=== PATIENT | male | born 1965 | race Caucasian/White ===

== ENCOUNTER 2018-12-10 09:53 | Day surgery (SDC) | payer BC, OTHER ==
[2018-12-07 11:12] VITALS: BMI 30.9
[~2018-12-10 09:53] MED LIST: Pre Op ABX Message 1 EACH MISC MISCELLANE ONE
[2018-12-10 10:30] LABS: Glucose,Whole Blood 213 mg/dL (75-99)
[2018-12-10] MEDS ORDERED: LACTATED RINGERS 1,000 ML IV ONE (10:30)
[2018-12-10 10:33] VITALS: TEMP 97.9
[2018-12-10] MEDS ORDERED: ONDANSETRON 4 MG/2 ML VIAL IVP ONE (10:33)
[2018-12-10] MEDS ORDERED: DEXAMETHASONE SOD PHOSPHATE 10 MG/ML 1 ML VIAL IV ONE (10:34)
[2018-12-10] MEDS ORDERED: MIDAZOLAM 2 MG/2 ML VIAL ONE (11:32)
[2018-12-10] MEDS ORDERED: PROPOFOL 10 MG/ML 20 ML VIAL IV ONE (11:32)
[2018-12-10] MEDS ORDERED: fentaNYL (PF) 50 MCG/ML 2 ML AMP ONE (11:32)
[2018-12-10] MEDS ORDERED: LIDOCAINE 1% INJ 10MG/ML (20 ML MDV) ONE (11:32)
[2018-12-10] MEDS ORDERED: LIDOCAINE 2% INJ 20 MG/ML SQ ONE (11:42)
[2018-12-10 12:22] VITALS: RESP 18
[2018-12-10 13:28] VITALS: BP 104/69; PULSE 73
[2018-12-10 14:00] LABS: Glucose,Whole Blood 152 mg/dL (75-99)
--- NOTE | 2018-12-11 12:58 | P.OP ---
Date of Procedure: 12/10/18 Preoperative Diagnosis: Right ring trigger finger Postoperative Diagnosis: Right ring trigger finger Procedure(s) Performed: Release of right ring trigger finger Anesthesia: MAC, local Surgeon: Siva Sims Estimated Blood Loss (ml): 1 Pathology: none sent Condition: stable Disposition: PACU Indications for Procedure: The patient is a 53-year-old male who was diagnosed with a right ring trigger finger. Treatment options were discussed, as well as their respective risks and benefits; the patient expressed understanding and wished to proceed with surgery. Consent forms were signed. The surgical site was confirmed and marked preoperatively. Description of Procedure: The patient was positioned supine with the operative limb on an arm board. Monitored anesthesia was administered. Using aseptic technique, local anesthetic was injected into the subcutaneous tissues tissues around the planned incision. The right upper extremity was prepped and draped in standard, sterile fashion. A timeout was performed which confirmed the patient, this operative side, the site and the procedure to be performed. All team members expressed agreement. The hand was exsanguinated with an Esmarch, which was then clamped at the wrist and used as a tourniquet. A longitudinal incision was marked over the A1 jenaro of the ring finger. Loupe magnification was utilized throughout the case for optimum visualization. The skin was sharply incised. Blunt, spreading dissection proceeded down flexor sheath, taking care to protect the adjacent neurovascular bundles. The A1 jenaro was identified. The jenaro was found to be quite stenosed with thickened synovial adhesions along the flexor sheath. The jenaro was incised longitudinally. Due to the amount of constriction, the proximal aspect of the A2 jenaro was also released. There was mild to moderate, superficial fraying of the tendons beneath the jenaro. The flexor tendons were elevated out of the wound with Ragnell retractors. Palpable release of proximal adhesions in the palm was noted. The tendons were released and allowed to retract back to their anatomic position. Passive motion of the digit demonstrated smooth tendon gliding without appreciable catching, triggering or focal restriction. The Esmarch tourniquet was released. Good hemostasis was confirmed. The wound was irrigated with normal saline and the incision was closed with interrupted 4- 0 nylon sutures. A soft, sterile dressing was applied. All sponge, needle and instrument counts were correct at the end the case. The patient tolerated the procedure well and was transferred to recovery in stable condition.
== END 2018-12-10 13:40 | disposition home or self-care (01) ==
LOC: OR 09:53
PROVIDERS: ATTEND Orthopaedic Surgery
DX: M65.341 Trigger finger, right ring finger (principal); I11.9 Hypertensive heart disease without heart failure; E78.5 Hyperlipidemia, unspecified; E03.9 Hypothyroidism, unspecified; E11.9 Type 2 diabetes mellitus without complications; Z95.1 Presence of aortocoronary bypass graft; Z98.61 Coronary angioplasty status; I25.10 Atherosclerotic heart disease of native coronary artery without angina pectoris; N40.0 Benign prostatic hyperplasia without lower urinary tract symptoms; F39 Unspecified mood [affective] disorder; Z79.82 Long term (current) use of aspirin; Z79.1 Long term (current) use of non-steroidal anti-inflammatories (NSAID); Z79.890 Hormone replacement therapy; Z79.4 Long term (current) use of insulin; Z79.899 Other long term (current) drug therapy
CPT/HCPCS: 26055; J2001 ×2; J2250; J1100; J2405; J3010; J2704

== ENCOUNTER → 2020-06-06 | Outpatient (CLI) | payer OTHER ==
--- NOTE | 2020-06-06 14:34 | MR ---
EXAMINATION TYPE: MR knee RT wo con DATE OF EXAM: 06/06/2020 COMPARISON: None HISTORY: Right knee pain TECHNIQUE: Multiplanar, multisequence images of the knee is performed without IV contrast. FINDINGS: MEDIAL MENISCUS: Anterior and posterior horns are intact without tear. LATERAL MENISCUS: I cannot exclude small annular tear posterior horn lateral meniscus. Anterior horn of the lateral meniscus is intact. CRUCIATE LIGAMENTS: The anterior and posterior cruciate ligaments are intact and unremarkable. COLLATERAL LIGAMENTS: The medial collateral ligament and lateral collateral ligament complex are inta ct and unremarkable. EXTENSOR MECHANISM: Visualized quadriceps and patellar tendons are intact. EFFUSION: No significant suprapatellar joint effusion. POPLITEAL CYST: No popliteal/soto cyst. TRICOMPARTMENT SPACES: Intact CARTILAGE: Intact BONE MARROW SIGNAL: There is evidence of bone contusion involving the lateral tibial plateau without evidence for fracture. OTHER: No additional significant abnormality is appreciated. IMPRESSION: 1. I cannot exclude small annular tear posterior horn lateral meniscus. Bone contusion lateral tibial plateau.
== END | disposition home or self-care (01) ==
LOC: RADMRIMAIN 12:50
PROVIDERS: ATTEND Orthopaedic Surgery
DX: S80.01XA Contusion of right knee, initial encounter (principal)

== ENCOUNTER → 2020-06-19 | Outpatient (CLI) | payer OTHER ==
[2020-06-19 10:52] LABS: Potassium 4.9 mmol/L (3.5-5.1)
[2020-06-19 10:58] LABS: Basophils % (A) 0 %; Eosinophils % (A) 0 %; HCT 47.9 % (39.0-53.0); HGB 15.8 gm/dL (13.0-17.5); Lymphocytes # (A) 1.3 k/uL (1.0-4.8); Lymphocytes % (A) 15 %; MCH 29.7 pg (25.0-35.0); MCHC 32.9 g/dL (31.0-37.0); MCV 90.2 fL (80.0-100.0); Mean Platelet Volume 7.8; Monocytes # (A) 0.4 k/uL (0-1.0); Monocytes % (A) 5 %; Neutrophils # (A) 6.8 k/uL (1.3-7.7); Neutrophils % (A) 79 %; Platelet Count 164 k/uL (150-450); RBC 5.31 m/uL (4.30-5.90); RDW 13.4 % (11.5-15.5); WBC 8.6 k/uL (3.8-10.6)
== END | disposition home or self-care (01) ==
LOC: LABPAT 09:34
PROVIDERS: ATTEND Orthopaedic Surgery
DX: Z01.818 Encounter for other preprocedural examination (principal); M23.91 Unspecified internal derangement of right knee
CPT/HCPCS: 36415; 80051; 85025; 93005

== ENCOUNTER 2020-06-28 11:03 | Day surgery (SDC) | payer OTHER ==
[2020-06-27 08:43] VITALS: BMI 29.2
--- NOTE | 2020-06-27 18:58 | HP ---
HISTORY AND PHYSICAL DATE OF SURGERY: 06/28/2020 Elgin Gonzales is a 54-year-old patient seen with progressive right knee pain. We discussed options for treatment. He elected to proceed with arthroscopy. Consent was obtained. PAST MEDICAL HISTORY: Mji-udxryro-loakhnhie diabetes, hypertension, hypothyroidism. PAST SURGICAL HISTORY: Coronary artery bypass surgery. DAILY MEDICATIONS: Aspirin. ALLERGIES: NONE. SOCIAL HISTORY: He denies tobacco use. PHYSICAL EVALUATION OF THE RIGHT KNEE: His range of motion is -2/3 to 130, mild effusion. Tenderness along the medial and lateral joint lines. Positive medial Sheri's. Positive lateral Sheri's. Ligaments are stable. Hip rotation is without pain. Distal neurovascular exam is intact. RADIOGRAPHS: Right knee radiographs revealed moderate medial patellofemoral compartment osteoarthritis, Right knee MRI revealed lateral meniscal tear. IMPRESSION: 1. Internal derangement right knee with lateral meniscal tear. 2. Right knee osteoarthritis. 3. Hypertension. PLAN: Right knee arthroscopy with partial meniscectomy, partial synovectomy and debridement. MMODL / IJN: [id number] /
[~2020-06-28 11:03] MED LIST changes: +LACTATED RINGERS 1,000 ML IV SCH; +LIDOCAINE 1% (10MG/ML) FOR IV START INTRADERMA PRN; +ONDANSETRON 4 MG/2 ML VIAL IVP ONE; +ONDANSETRON 4 MG/2 ML VIAL IVP PRN; -Pre Op ABX Message 1 EACH MISC MISCELLANE ONE; +SCOPOLAMINE 1.5MG/72HR PATCH TRANSDERM ONE
[2020-06-28 11:39] VITALS: RESP 16
[2020-06-28 11:53] LABS: Glucose,Whole Blood 194 mg/dL (75-99)
[2020-06-28] MEDS ORDERED: MIDAZOLAM 2 MG/2 ML VIAL ONE (12:58)
[2020-06-28] MEDS ORDERED: SUCCINYLCHOLINE CHLORIDE 100 MG/5 ML SYR IV ONE (12:58)
[2020-06-28] MEDS ORDERED: KETOROLAC 15 MG/ML 1 ML VIAL ONE (12:58)
[2020-06-28] MEDS ORDERED: PROPOFOL 10 MG/ML 20 ML VIAL IV ONE (12:58)
[2020-06-28] MEDS ORDERED: GLYCOPYRROLATE 0.2 MG/ML 2 ML VIAL ONE (12:58)
[2020-06-28] MEDS ORDERED: BUPIVACAINE (PF) 0.25% 30 ML VIAL INTRAARTIC ONE (12:58)
[2020-06-28] MEDS ORDERED: fentaNYL (PF) 50 MCG/ML 2 ML AMP ONE (12:58)
[2020-06-28 13:52] VITALS: TEMP 97.1
[2020-06-28] MEDS: HYDROmorphone 0.5 MG/0.5 ML SYRINGE IVP PRN ×4 (13:55→14:23)
--- NOTE | 2020-06-28 13:56 | P.OP ---
Date of Procedure: 06/28/20 Preoperative Diagnosis: Internal derangement right knee Postoperative Diagnosis: 1. Tear lateral meniscus right knee 2. Reactive synovitis medial, lateral and suprapatellar compartments right knee Procedure(s) Performed: 1. Arthroscopic partial lateral meniscectomy right knee 2.. Partial synovectomy medial, lateral and suprapatellar compartments right knee Anesthesia: PORTER, local Surgeon: Navneet Young Estimated Blood Loss (ml): 6 Pathology: none sent Condition: stable Disposition: PACU Indications for Procedure: 54-year-old patient seen with progressive right knee pain. After treatment options were discussed, he elected to proceed with arthroscopy. Operative Findings: See description of procedure Description of Procedure: Patient was taken to the operative suite. Patient underwent a general anesthetic by the department of anesthesia. Patient was given preoperative antibiotics. The right lower extremity was placed in a well-padded arthroscopic leg jones. The right leg was prepped and draped in the normal sterile orthopedic fashion. A lateral parapatellar and suprapatellar incision was made. Trochars were inserted. Arthroscopy was initiated. Suprapatellar pouch revealed diffuse thick reactive synovitis. The patellofemoral joint appeared to articulate congruently. There was no chondromalacia present. The scope was guided into the medial gutter. No loose bodies or plica were identified. The scope was then guided into the medial compartment. A medial parapatellar incision was made. Trocar inserted followed by probe. The medial meniscus was probed. There was some fraying along the undersurface midbody area. There was thick reactive synovitis anteriorly. I motorize shaver and debrided that area of fraying undersurface midbody medial meniscus. I now performed a partial syn ovectomy decompressing the thick reactive some-itis. The residual meniscus was probed and found to be stable. There was good decompression of the synovitis. Scope and probe were then guided into the intercondylar notch. Cruciates were identified, probed and found to be stable. The scope and probe were then guided into lateral compartment. There was a radial tear involving the posterior horn of the lateral meniscus. There was no significant chondromalacia. There was thick reactive synovitis anteriorly. I performed a partial lateral meniscectomy getting down to stable meniscal tissue. I performed a partial synovectomy decompressing the thick reactive synovitis. The shaver was removed. The residual meniscus was stable. There was good decompression of the synovitis. The scope was in guided back into the suprapatellar compartment. I introduced the motorized shaver into the suprapatellar compartment. I debrided some piecemeal fragments of meniscus I encountered. I performed a partial synovectomy decompressing reactive synovitis. The shaver was removed. I took one more look on the entire knee, no residual debris. Instruments were now removed from the joint. The joint was infiltrated with .25% Marcaine. Steri- Strips were applied to the portal sites. Sterile dressings were applied. The patient was placed into a RADHA hose. No tourniquet was utilized. The patient was awakened, transferred to a bed and taken to recovery stable satisfactory condition.
[2020-06-28 14:01] LABS: Glucose,Whole Blood 175 mg/dL (75-99)
[2020-06-28 14:56] VITALS: BP 152/78; PULSE 61
== END 2020-06-28 15:35 | disposition home or self-care (01) ==
LOC: OR 11:03
PROVIDERS: ATTEND Orthopaedic Surgery
DX: M23.251 Derangement of posterior horn of lateral meniscus due to old tear or injury, right knee (principal); M65.861 Other synovitis and tenosynovitis, right lower leg; M17.11 Unilateral primary osteoarthritis, right knee; I10 Essential (primary) hypertension; E11.9 Type 2 diabetes mellitus without complications; E03.9 Hypothyroidism, unspecified; Z95.1 Presence of aortocoronary bypass graft; Z79.82 Long term (current) use of aspirin
CPT/HCPCS: 29881; 29876; J2250; J0690; J2405; J3010; J1885; J0330; J2704; J1170

== ENCOUNTER → 2021-08-12 | Outpatient (CLI) | payer BC ==
--- NOTE | 2021-08-13 06:29 | MR ---
EXAMINATION TYPE: MR knee LT wo con DATE OF EXAM: 08/12/2021 COMPARISON: None HISTORY: Left knee pain, S/P injury. Multiplanar multiecho imaging of the left knee without contrast. There is extensive abnormal increased signal on the proton density images involving the lateral femor al condyle consistent with a large bone bruise. No fracture line seen. There is a small horizontal tear of the posterior horn medial meniscus at the inferior surface. There is a mild knee joint effusion. The collateral ligaments appear intact. The medial and lateral menisci appear fairly normal. There is no significant joint space narrowing. P roximal tibia is intact. There is mild subcutaneous edema anterior to the knee. IMPRESSION: Large bone bruise involving the lateral femoral condyle. No fracture seen. Small horizontal tear of the posterior horn of the medial meniscus. No evidence of ligamentous tear. Mild knee joint effusion.
== END | disposition home or self-care (01) ==
LOC: RADMRIMAIN 19:45
PROVIDERS: ATTEND Family Medicine
DX: S83.242A Other tear of medial meniscus, current injury, left knee, initial encounter (principal)

== ENCOUNTER → 2021-10-02 | Outpatient (CLI) | payer BC ==
[2021-10-02 09:18] LABS: Basophils % (A) 0 %; Eosinophils # (A) 0.1 k/uL (0-0.7); Eosinophils % (A) 1 %; HCT 47.6 % (39.0-53.0); HGB 16.1 gm/dL (13.0-17.5); Lymphocytes # (A) 1.4 k/uL (1.0-4.8); Lymphocytes % (A) 14 %; MCH 30.5 pg (25.0-35.0); MCHC 33.8 g/dL (31.0-37.0); MCV 90.2 fL (80.0-100.0); Mean Platelet Volume 7.5; Monocytes # (A) 0.5 k/uL (0-1.0); Monocytes % (A) 4 %; Neutrophils # (A) 8.1 k/uL (1.3-7.7); Neutrophils % (A) 79 %; Platelet Count 184 k/uL (150-450); RBC 5.28 m/uL (4.30-5.90); RDW 14.7 % (11.5-15.5); WBC 10.3 k/uL (3.8-10.6)
[2021-10-02 09:24] LABS: Potassium 4.1 mmol/L (3.5-5.1)
== END | disposition home or self-care (01) ==
LOC: LABPAT 08:13
PROVIDERS: ATTEND Orthopaedic Surgery
DX: Z01.812 Encounter for preprocedural laboratory examination (principal); M23.92 Unspecified internal derangement of left knee
CPT/HCPCS: 36415; 80051; 85025; 93005

== ENCOUNTER 2021-10-10 07:32 | Day surgery (SDC) | payer BC ==
[2021-10-03 10:40] VITALS: BMI 29.5
--- NOTE | 2021-10-09 15:59 | HP ---
HISTORY AND PHYSICAL REASON FOR ADMISSION: Surgery scheduled 10/10/2021. HISTORY OF PRESENT ILLNESS: Elgin Gonzales is a 56-year-old gentleman seen with progressive left knee pain. We discussed options for treatment. He elected to proceed with left knee arthroscopy. Consent is obtained. PAST MEDICAL HISTORY: [id number] diabetes, hypothyroidism. PAST SURGICAL HISTORY: Quadruple bypass, right knee arthroscopy. DAILY MEDICATIONS: Aspirin, ibuprofen, Synthroid. ALLERGIES: None. SOCIAL HISTORY: Denies tobacco use. PHYSICAL EVALUATION OF THE LEFT KNEE: Range of motion is -4/5-115. Mild effusion. Tenderness along the medial joint line. Tenderness along the lateral joint line. Positive medial Sheri's. Ligaments stable. Hip rotation without pain. Distal neurovascular exam intact. RADIOGRAPHS: Left knee radiographs revealed mild osteoarthritis. MRI left knee revealed medial meniscal tear. Large bone contusion and moderate effusion. IMPRESSION: Internal derangement of left knee with medial meniscal tear. PLAN: Left knee arthroscopy with partial meniscectomy and debridement. Surgery is scheduled for 10/10/2021. MMODL / IJN: [id number] /
[~2021-10-10 07:32] MED LIST changes: +HYDROmorphone 0.5 MG/0.5 ML SYRINGE IVP PRN; -ONDANSETRON 4 MG/2 ML VIAL IVP ONE; -SCOPOLAMINE 1.5MG/72HR PATCH TRANSDERM ONE
[2021-10-10 08:33] LABS: Glucose,Whole Blood 265 mg/dL (75-99)
[2021-10-10] MEDS ORDERED: INSULIN ASPART (NovoLOG) 100 UNIT/ML VIAL SQ ONE ×2 (08:42→10:50)
[2021-10-10] MEDS ORDERED: LIDOCAINE 1% INJ 10MG/ML (20 ML MDV) ONE (09:36)
[2021-10-10] MEDS ORDERED: PROPOFOL 10 MG/ML 20 ML VIAL IV ONE (09:36)
[2021-10-10] MEDS ORDERED: fentaNYL (PF) 50 MCG/ML 2 ML AMP ONE (09:36)
[2021-10-10] MEDS ORDERED: BUPIVACAINE (PF) 0.25% 30 ML VIAL SQ ONE ×2 (09:36→10:10)
[2021-10-10] MEDS ORDERED: MIDAZOLAM 2 MG/2 ML VIAL ONE (09:36)
--- NOTE | 2021-10-10 10:25 | P.OP ---
Date of Procedure: 10/10/21 Preoperative Diagnosis: Internal derangement left knee Postoperative Diagnosis: 1. Tear medial meniscus left knee 2. Grade 2 chondromalacia medial femoral condyle left knee 3. Reactive synovitis medial, lateral and suprapatellar compartments left knee Procedure(s) Performed: 1. Arthroscopic partial medial meniscectomy left knee 2. Arthroscopic chondroplasty medial femoral condyle left knee 3. Arthroscopic partial synovectomy medial, lateral and suprapatellar compartments left knee Anesthesia: BURKEA, local Surgeon: Navneet Young Estimated Blood Loss (ml): 7 Pathology: none sent Condition: stable Disposition: PACU Indications for Procedure: 56 -year-old patient seen with progressive left knee pain. After having treatment options discussed, he elected to proceed with arthroscopy. Operative Findings: See description of procedure Description of Procedure: Patient was taken to the operative suite. Patient underwent a general anesthetic by the department of anesthesia. Patient was given preoperative antibiotics. The left lower extremity was placed in a well-padded arthroscopic leg jones. The left leg was prepped and draped in the normal sterile orthopedic fashion. A lateral parapatellar and suprapatellar incision was made. Trochars were inserted. Arthroscopy was initiated. Suprapatellar pouch revealed diffuse thick reactive synovitis. The patellofemoral joint appeared to articulate congruently. There was grade 1 chondromalacia of the patellofemoral joint with no osteochondral tears present. The scope was guided into the medial gutter. No loose bodies or plica were identified. The scope was then guided into the medial compartment. A medial parapatellar incision was made. Trocar inserted followed by probe. There was a radial tear involving the posterior horn medial meniscus. There were grade 2 chondromalacia changes of the medial femoral condyle with some osteochondral flap tears present. There was thick reactive synovitis anteriorly. I performed a partial medial meniscectomy getting down to stable meniscal tissue. I performed a chondroplasty of the medial femoral condyle getting down to stable osteochondral tissue. I performed a partial synovectomy compressing the thick reactive synovitis. The shaver was removed. The residual meniscus was stable. The residual osteochondral surface was stable. There was good decompression of synovitis. Scope and probe were then guided into the intercondylar notch. Cruciates were identified, probed and found to be stable. The scope and probe were then guided into lateral compartment. Lateral meniscus was probed and was found to be stable. There were no significant chondromalacia changes involving the lateral compartment. There was some thick reactive synovitis anteriorly. I introduced a motorized shaver and I performed a partial synovectomy. The shaver was removed. There was good decompression of the synovitis. The scope was in guided back into the suprapatellar compartment. I introduced a motorized shaver into the super patellar compartment. I debrided some piecemeal fragments of meniscus that I encountered. I performed a partial synovectomy. Shaver was removed. There appeared be good decompression of the synovitis. I now took one more look around the entire knee, no residual debris. Instruments were now removed from the joint. The joint was infiltrated with .25% Marcaine. Steri-Strips were applied to the portal sites. Sterile dressings were applied. The patient was placed into a RADHA hose. No tourniquet was utilized. The patient was awakened, transferred to a bed and taken to recovery stable satisfactory condition.
[2021-10-10] MEDS ORDERED: KETOROLAC 15 MG/ML 1 ML VIAL IVP ONE (10:28)
[2021-10-10 10:32] VITALS: TEMP 96.7
[2021-10-10 10:46] LABS: Glucose,Whole Blood 244 mg/dL (75-99)
[2021-10-10 11:27] VITALS: RESP 16
[2021-10-10 11:28] LABS: Glucose,Whole Blood 240 mg/dL (75-99)
[2021-10-10] MEDS ORDERED: HYDROcodone/APAP 5-325MG 1 EACH TAB ONE (11:33)
[2021-10-10] MEDS ORDERED: HYDROcodone/APAP 5-325MG 1 EACH TAB PO ONE (11:34)
[2021-10-10 11:50] VITALS: BP 144/72; PULSE 56
== END 2021-10-10 12:31 | disposition home or self-care (01) ==
LOC: OR 07:32
PROVIDERS: ATTEND Orthopaedic Surgery
DX: S83.242A Other tear of medial meniscus, current injury, left knee, initial encounter (principal); M94.262 Chondromalacia, left knee; E11.9 Type 2 diabetes mellitus without complications; E03.9 Hypothyroidism, unspecified
CPT/HCPCS: 29881; J2250; J0690; J2405; J2001; J3010; J1885; J2704